=== PATIENT | male | born 1940 | race African-American/Black ===

== ENCOUNTER → 2017-03-31 | Outpatient (CLI) | payer OTHER ==
[~2017-03-31] MED LIST: ADVAIR HFA 1112 UNIT INH; ADVAIR HFA115 MCG/21 INH; ALBUTEROL2.5 MG/0.5 IH; ALBUTEROL2.5 MG/31 INH; ALLOPURINOL 30300 M1 PO; ASPIRIN325 PO; CARVEDILOL25 MG PO; COLCRYS; COLCRYS0.6 MG PO; COUMADIN 5 MG TA5 M1 PO; COZAAR100 MG PO; ENOXAPARIN40 MG/0.1 SUBQ; FUROSEMIDE 80 M80 M1 PO; HYDRALAZINE 2525 M1 PO; IMDUR60 MG PO; IRON325 MG PO; LASIX 40 MG TAB40 M2; LOVENOX40 MG/0.4 SQ; POTASSIUM20 PO; PREDNISONE 10 M10 MG PO; SEROQUEL 12.512.5 MG PO; SIMVASTATIN40 MG PO; ZOCOR20 MG
--- NOTE | ~2017-03-31 | 2DMMODE ---
[facility] [place] [address] 2 D/M-MODE ECHOCARDIOGRAM Name: LELAND TERRAZAS Room #: REG [facility]#: [id number] Admission: 03/31/17 Attend Phys: Frank Rangel MD Discharge: Date of : 40 Date of Service: 03/31/17 1031 Report #: [id number] THIS REPORT FOR: //name// APPROVED REPORT Study performed: 03/31/2017 09:43:02 EXAM: Comprehensive 2D, Doppler, and color-flow Echocardiogram Patient Location: Out-Patient Blood Pressure: 166/88 mmHg HR: 83 bpm Rhythm: Atrial Fibrillation Other Information Study Quality: Adequate Indications CAD, Afib, CVA, HTN, HLP, obesity 2D Dimensions RVDd: 37.05 mm LVEF(%): 29.24 (>50%) IVSd: 11.84 (7-11mm) LVOT Diam: 23.49 (18-24mm) LVDd: 52.47 mm PWd: 11.99 (7-11mm) Ascending Ao: 36.44 (22-36mm) LVDs: 45.23 (25-40mm) Aortic Root: 38.51 mm Junior's LVEF: 29.24 % Volumes Left Atrial Volume (Systole) Single Plane 4CH: 49.97 mL Single Plane 2CH: 89.72 mL LA ESV Index: 28.00 mL/m2 Aortic Valve AoV Peak Contreras.: 1.30 m/s AO Peak Gr.: 6.80 mmHg LVOT Max P.08 mmHg LVOT Max V: 1.01 m/s JULIETH Vmax: 3.36 cm2 Pulmonary Valve PV Peak Contreras.: 0.81 m/s PV Peak Gr.: 2.61 mmHg [facility] [place] [address] 2 D/M-MODE ECHOCARDIOGRAM Name: LELAND TERRAZAS Room #: REG [facility]#: [id number] Admission: 03/31/17 Attend Phys: Frank Rangel MD Discharge: Date of : 40 Date of Service: 03/31/17 1031 Report #: [id number] Tricuspid Valve RAP Estimate: 5.00 mmHg Left Ventricle The left ventricle is normal size. Hypokinesis involving inferior wall. Mild concentric left ventricular hypertrophy. The left ventricular systolic function is mildly depressed. EF 45-50% This study is not technically sufficient to allow evaluation of the LV diastolic function due to atrial fibrillation. Right Ventricle The right ventricle is normal size. Atria The left atrium size is normal. The right atrium size is normal. Aortic Valve The aortic valve is mildly sclerotic Mild aortic regurgitation. There is no aortic valvular stenosis. Mitral Valve The mitral valve is normal in structure. Trace mitral regurgitation. Tricuspid Valve The tricuspid valve is normal in structure. There is no tricuspid valve regurgitation noted. Pulmonic Valve The pulmonary valve is normal in structure. Trace to mild pulmonic regurgitation. Great Vessels The aortic root is normal in size. The ascending aorta is normal in size. IVC is normal in size and collapses >50% with inspiration. Pericardium There is no pericardial effusion. <Conclusion> The left ventricular systolic function is mildly depressed. Hypokinesis involving inferior wall. EF 45-50% The aortic valve is mildly sclerotic, no stenosis. Mild aortic [facility] [place] [address] 2 D/M-MODE ECHOCARDIOGRAM Name: LELAND TERRAZAS Room #: REG [facility]#: [id number] Admission: 03/31/17 Attend Phys: Frank Rangel MD Discharge: Date of : 40 Date of Service: 03/31/171030 Report #: [id number] regurgitation. Structurally normal mitral valve. Trace mitral regurgitation. Pulmonary artery pressure could not be reliably ascertained. There is no pericardial effusion. <ELECTRONICALLY SIGNED> By: Rudy Mario MD, FACC 03/31/171030 30 30 Rudy Mario MD, FACC /INF
== END ==
LOC: CV 09:19
DX: I25.10 Atherosclerotic heart disease of native coronary artery without angina pectoris (principal)

== ENCOUNTER 2019-02-11 13:30 | Emergency (ER) | payer OTHER ==
[~2019-02-11] VITALS: Ht 180.3 cm; Wt 119.8 kg
[2019-02-11 14:06] LABS: PROTIME 28.2 Seconds (9.3-11.4)
[2019-02-11 14:08] LABS: APTT 45.9 Seconds (24.5-32.8); INR 2.7
[2019-02-11 15:00] VITALS: BP 147/79
--- NOTE | 2019-02-14 13:09 | EKG ---
[place] [address] [facility] [place] [address] ELECTROCARDIOGRAM REPORT Name: CARMEN TERRAZASLIE Room #: DEP [facility]#: [id number] ������������������ Admission: 02/11/19 ������������������ Attend Phys: Discharge: 02/11/19 ������������������ Date of : 40 Report #: [id number] ����������������������������������������������������������������� [id number] THIS REPORT FOR: //name// 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 : 1940 Requested By: Sarah Hernandez Order Number: [id number] MD: Rudy Mario Measurements Intervals [place] Rate: 72 P: -41 NV: 251 QRS: -12 QRSD: 109 T: 92 QT: 395 QTc: 433 Interpretive Statements Sinus rhythm Ventricular premature complex Prolonged NV interval Nonspecific ST and T wave abnormality Compared to ECG 02/28/2014 03:19:58 Ventricular premature complex(es) now present First degree AV block now present Electronically Signed On 02-14-2019 13:09:05 CDT by Rudy Mario [email or web address] ��������������������������������������������� <ELECTRONICALLY SIGNED> ���������������������������������������� By: Rudy Mario MD, [facility] ��������������������������������������������� 02/14/19 1309 [id number] [id number] Rudy Mario MD, [facility] /EPI
== END 2019-02-11 15:00 | disposition short-term general hospital (02) ==
LOC: ER 13:30
PROVIDERS: Emergency Medicine
DX: I63.9 Cerebral infarction, unspecified (principal); Z79.01 Long term (current) use of anticoagulants; M19.90 Unspecified osteoarthritis, unspecified site; E78.00 Pure hypercholesterolemia, unspecified; G47.30 Sleep apnea, unspecified; I12.9 Hypertensive chronic kidney disease with stage 1 through stage 4 chronic kidney disease, or unspecified chronic kidney disease; N18.9 Chronic kidney disease, unspecified; D86.9 Sarcoidosis, unspecified; Z86.73 Personal history of transient ischemic attack (TIA), and cerebral infarction without residual deficits

== ENCOUNTER 2021-12-12 13:58 | Emergency (ER) | payer OTHER ==
[~2021-12-12] VITALS: Ht 182.9 cm; Wt 113.4 kg
--- NOTE | ~2021-12-12 | EMS ---
[address] [address] EMS Patient Care Report Name: LELAND TERRAZAS Room #: REG [facility] M.Steve#: [id number] Admission: 12/12/21 Attend Phys: Discharge: Date of : 40 Report #: [id number] THIS REPORT FOR: //name// Report Transmitted: 12/12/2021 13:38 EMS Care Summary [place], [place]/[facility] Incident [id number] @ 12/12/2021 13:29 Incident Location [address] [place], [place] [id number] Patient LELAND TERRAZAS Male, 81 Years 1940 Patient Address [address] [place] [address] Patient History Stroke/CVA, Patient Allergies Other drug allergy, Patient Medications Aspirin, Furosemide, Fish Oil, Albuterol, Vitamin B12, Allopurinol, Carvedilol, Polyethlene Glycol, Isosorbide, Paroxetine, Diclofenac, Tamsulosin, Amlodipine, Simvastatin, Chief Complaint Blood in urainary cathether Disposition Transported No Lights/[place] Dispatch Reason Hemorrhage/Laceration Transported To [facility] Narrative Medic 36 dispatched to a private residence for a hemorrhage. Upon arrival found an 81 y/o male pt seated in his chair. Pt's was on scene and reported that [address] [address] EMS Patient Care Report Name: LELAND TERRAZAS [facility] [id number] Admission: 12/12/21 Attend Phys: Discharge: Date of : 40 Report #: [id number] she noticed blood in his urinary catheter. Pt was assisted to the EMS cot and was secured with seatbelts. Pt was then taken to and loaded into the ambulance without incident. Pt was then transported to [facility] while vital signs were monitored, where care of the patient and possession of his belongings were turned over to ER staff without incident. Medic 36 placed back in service. 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 Procedures @13:49 ALS Assessment Response: UnchangedSucceeded @13:50 BLS Assessment Response: Unchanged @13:50 Stretcher Response: Unchanged Timeline 13:28,Call Received 13:28,Dispatch Notified 13:29,Dispatched 13:30,En Route 13:36,On Scene 13:36,At Patient 13:43,BP: 144/69 M,PULSE: 67,RR: 14 R,SPO2: 95 Ox,ETCO2: ,BG: ,PAIN: 0,GCS: 15, 13:44,BP: 137/70 M,PULSE: 60,RR: 14 R,SPO2: 94 Ox,ETCO2: ,BG: ,PAIN: ,GCS: 15, 13:45,Depart Scene 13:49,ALS Assessment,Response: UnchangedSucceeded, 13:50,BLS Assessment,Response: Unchanged 13:50,Stretcher,Response: Unchanged 13:56,At Destination 14:11,Call Closed Disclaimer v1.1 Copyright 2021 [employer] This EMS Care Summary contains data elements from the applicable legal record (which may be displayed differently). It is designed to provide pertinent [facility] [address] [place] [address] EMS Patient Care Report Name: LELAND TERRAZAS Room #: REG Franco#: [id number] Admission: 12/12/21 Attend Phys: Discharge: Date of : 40 Report #: [id number] information for the following purposes: continuity of care, clinical quality, and state data reporting. The complete legal record is available to ED staff and administrators of the receiving hospital in [employer]base's Patient Tracker. All data is provided "as is."
--- NOTE | ~2021-12-12 | EKG ---
[facility] [place] [address] ELECTROCARDIOGRAM REPORT Name: CARMEN TERRAZASLIE Room #: [facility] Franco#: [id number] Admission: 12/12/21 Attend Phys: Discharge: 12/12/21 Date of : 40 Report #: [id number] [facility] ED Test Date: 2021-12-12 Test Time: 14:08:58 Pat Name: LELAND TERRAZAS Department: Room: Gender: Neurosurgical Nurse: christa : 1940 Requested By: Ayesha Galicia Order Number: [id number] MD: Measurements Intervals [place] Rate: 58 P: 0 WA: 88 QRS: -14 QRSD: 116 T: -53 QT: 480 QTc: 472 Interpretive Statements Wandering atrial pacemaker Incomplete left bundle branch block [email or web address] By: 07 140 Gerardo Carrillo MD /EPI
[2021-12-12 14:50] LABS: URINE BILIRUBIN NEGATIVE (Negative); URINE BLOOD 3+ (Negative); URINE CLARITY CLOUDY; URINE COLOR YELLOW; URINE GLUCOSE-RANDOM* NEGATIVE (Negative); URINE KETONES NEGATIVE (Negative); URINE NITRITE-REFLEX NEGATIVE (Negative); URINE PROTEIN (DIPSTICK) 2+ (Negative)
[2021-12-12 14:57] LABS: URINE LEUKOCYTES-REFLEX 3+ (Negative)
[2021-12-12 15:00] LABS: CASTS None Seen /LPF (None Seen); CRYSTALS None Seen /LPF (None Seen); MUCUS 0-3 Light strn/LPF (None Seen); SQUAMOUS 0-3 Few /LPF (0-3); URINE RBC >20 Many /HPF (NONE SEEN); URINE WBC-REFLEX >25 Many /HPF (0-5)
[2021-12-12] MEDS ORDERED: CEPHALEXIN500 MG PO (15:08)
[2021-12-12 16:38] VITALS: BP 159/67
[2021-12-15] MEDS ORDERED: CIPROFLOXACIN500 M1 PO (08:49)
== END 2021-12-12 16:39 | disposition home or self-care (01) ==
LOC: ER 13:58
PROVIDERS: Student in an Organized Health Care Education/Training Program
DX: N30.01 Acute cystitis with hematuria (principal); I12.9 Hypertensive chronic kidney disease with stage 1 through stage 4 chronic kidney disease, or unspecified chronic kidney disease; N18.9 Chronic kidney disease, unspecified; M19.90 Unspecified osteoarthritis, unspecified site; E78.00 Pure hypercholesterolemia, unspecified; Z86.73 Personal history of transient ischemic attack (TIA), and cerebral infarction without residual deficits; Z79.51 Long term (current) use of inhaled steroids; Z79.82 Long term (current) use of aspirin; Z79.891 Long term (current) use of opiate analgesic; Z79.899 Other long term (current) drug therapy